=== PATIENT | female | born 1940 | race Caucasian/White ===

== ENCOUNTER 2017-02-15 01:11 | Emergency (ER) | payer OTHER ==
[~2017-02-15] VITALS: Ht 149.9 cm; Wt 57.6 kg
[2017-02-15] MEDS ORDERED: HYDROXYCHLOROQ200 M1 PO (01:34)
[2017-02-15] MEDS ORDERED: CARDURA1 MG PO (01:38)
[2017-02-15] MEDS ORDERED: GLUCOTROL5 MG PO (01:39)
[2017-02-15] MEDS ORDERED: CALCITRIOL0.25 MCG PO (01:42)
[2017-02-15] MEDS ORDERED: ZOCOR20 MG PO (01:43)
[2017-02-15] MEDS ORDERED: COREG25 MG PO (01:44)
[2017-02-15] MEDS ORDERED: OMEPRAZOLE40 MG PO (01:46)
[2017-02-15 01:48] LABS: HEMATOCRIT 25.7 % (37.0-47.0); HEMOGLOBIN 8.5 gm/dL (12.0-15.0); MCH 29.4 pg (26.0-34.0); MCHC 32.9 g/dL (28.0-37.0); MCV 89.2 fL (80.0-100.0); PLATELET COUNT 227 thou/uL (150-400); RBC 2.88 mil/uL (4.20-5.00); RDW 12.9 % (10.5-14.5)
[2017-02-15 01:49] LABS: MANUAL DIFF YES
[2017-02-15 01:55] LABS: CALCIUM 9.6 mg/dL (8.5-10.1); CREATININE 4.9 mg/dL (0.6-1.0); POTASSIUM 3.7 mmol/L (3.5-5.1)
[2017-02-15 02:07] LABS: ABSOLUTE NEUTROPHILS 9.7 thou/uL (1.4-8.2); MYELOCYTES 1 %; TOTAL CELL COUNT 100
[2017-02-15 03:27] VITALS: BP 159/58
== END 2017-02-15 03:28 | disposition home or self-care (01) ==
LOC: ER 01:11
PROVIDERS: Emergency Medicine
DX: E11.649 Type 2 diabetes mellitus with hypoglycemia without coma (principal); Z86.39 Personal history of other endocrine, nutritional and metabolic disease

== ENCOUNTER 2017-02-21 07:48 | Inpatient (IN) | payer OTHER ==
[~2017-02-21] VITALS: Ht 149.9 cm; Wt 58.1 kg
[2017-02-21] VITALS (15 sets, daily range): BP systolic 98–170; BP diastolic 35–129
--- NOTE | ~2017-02-21 | HC ---
[facility] [address] [place] [address] CONSULTATION Name: NIKOLE BANKS Room #: 454-P [facility] IN M.R.#: [id number] Admission: 02/21/17 Attend Phys: Kostas Kim MD Discharge: 03/01/17 Date of : 42 Report #: [id number] THIS REPORT FOR: //name// CC: JOB FRANKLIN Physician staff Kostas Kim DATE OF SERVICE: 02/24/2017 HISTORY OF PRESENT ILLNESS: The patient is a 76-year-old female admitted with acute blood loss anemia. She was noted to have a hemoglobin of 6.6. She underwent an EGD, which revealed gastritis along with an esophageal stricture, which was dilated. The anemia was felt to be multifactorial. She does have premorbid end-stage renal disease. She had not been on dialysis, but the plan now is to have her go on dialysis. She had a dialysis catheter placed. She has generalized weakness and debilitation and we are seeing her in rehabilitation medicine consultation. PAST MEDICAL HISTORY: Includes hypertension, high cholesterol, cataracts, hysterectomy, rheumatoid arthritis, GERD, diabetes mellitus, chronic kidney disease. MEDICATIONS: Please see the full medication listing. ALLERGIES: Amoxicillin. HABITS: No history of tobacco or alcohol abuse. SOCIAL HISTORY: Lives in an apartment alone, utilizes a walker, was able to dress herself, bath herself, cook, did not drive. She does have two involved daughters and the plan is likely to initially stay with one of the daughters. Both of them do have some steps into their respective homes. REVIEW OF SYSTEMS: She did not offer any current complaints of chest pain, shortness of breath or abdominal discomfort. She does have numbness of both lower extremities, although she does not know specific diagnosis in the past of a peripheral neuropathy. No focal extremity pain complaints. She does have some chronic rheumatoid changes with RA. PHYSICAL EXAMINATION: GENERAL: A 76-year-old overweight, pleasant female in no obvious distress. VITAL SIGNS: Last recorded temperature is 98.3, pulse 76, respirations 16, blood pressure 160/72. The patient is alert, oriented. HEENT: Appeared to be benign. NEUROLOGIC: Cranial nerves are grossly intact. Facies are symmetric. She does have the port in place. Left supraclavicular area. No obvious focal weakness [address] [address] CONSULTATION Name: NIKOLE BANKS Room #: 454-P [facility] IN ..#: [id number] Admission: 02/21/17 Attend Phys: Kostas Kim MD Discharge: 03/01/17 Date of : 42 Report #: [id number] with gentle testing of that left upper extremity. No obvious focal weakness of the right upper extremity. She does have some chronic rheumatoid changes of her hands. Lower extremities, no focal calf swelling. Range of motion appears reasonably intact. Her strength is grade 3+ to 4-/5. DTRs are trace. She does have distal decreased sensation in a stocking distribution. She has been min assist with sit to stand and ambulated 3 feet min assist with a front-wheeled walker. ASSESSMENT: A 76-year-old female with the following problem list: 1. Medical complexity with generalized debilitation. 2. Anemia, which appears multifactorial. 3. Dysphagia secondary to esophageal stricture, status post dilatation 02/22. End-stage renal disease, now to start hemodialysis. 4. Protein-calorie malnutrition. 5. Diabetes mellitus with evidence of premorbid peripheral neuropathy. 6. History of rheumatoid arthritis. PLAN: The patient appears motivated to improve her strength and endurance with the goal of initially going to live with one of the daughters. She does have multiple comorbidities with multiple physicians that are following. She certainly could be a candidate for a short acute in-hospital inpatient rehabilitation stay where the multiple foreign law consultant physicians can continue to follow along with her to try to expedite getting her back home into the home setting. Insurance will be checked regarding acute inpatient rehabilitation options for her to go to the rehab alatorre for a short stay to get back to the home setting. We will be glad to follow along with you. <ELECTRONICALLY SIGNED> By: Stanley Iverson MD 03/02/17 1006 [id number] [id number] Stanley Iverson MD /[facility]
--- NOTE | ~2017-02-21 | EKG ---
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
--- NOTE | ~2017-02-21 | S ---
[facility] [place] [address] SURGICAL PATH RPT PROCEDURE Name: NIKOLE BANKS Room #: 454-P ADM IN M.R.#: [id number] Admission: 02/21/17 Date of : 42 Discharge: Report #: [id number] Path Case #: [id number] PATHOLOGY REPORT COLLECTION DATE: 02/22/2017 RECEIVED DATE: 02/22/2017 SUBMITTING PHYS: Dr. Jung Carbajal OTHER PHYS: Dr. Kostas Carreon SPECIMEN(S) RECEIVED: A.Small bowel bx B.Antral bx * * * * * * * * * * * * FINAL DIAGNOSIS: A. Small bowel biopsy, "small bowel biopsy": - No obvious diagnostic changes. - There is no evidence of acute cryptitis, granulomas, adenomatous change, sprue-like changes or malignancy. B. Gastric biopsy, antrum: - Mild chronic reactive gastropathy. - The immunoperoxidase stains for Helicobacter pylori is negative. (SHA:mgr; 02/24/2017) PATHOLOGIST: Rony Tony M.D. REPORT ELECTRONICALLY SIGNED BY: Rony Tony M.D. DATE/TIME: 02/24/2017 12:48 * * * * * * * * * * * * GROSS PATHOLOGY: A. Received in formalin labeled "Nikole Banks, small bowel BX r/o Celiac," is a segment of lowry soft tissue measuring 0.4 cm in maximum dimension. The specimen is submitted entirely in cassette A1. B. Received in formalin labeled "Nikole Banks, antral BX r/o H. pylori," are 3 segments of lowry soft tissue measuring 0.8 x 0.5 x 0.3 cm in aggregate dimensions and ranging from 0.2 to 0.7 cm in maximum dimension. The specimen is submitted entirely in cassette B1. (TSD; 02/23/2017) CLINICAL HISTORY: Pre-OP DX: Anemia Post-OP DX: Esophageal stricture, dysphagia INITIAL CPT CODE(S): [address] [address] SURGICAL PATH RPT PROCEDURE Name: NIKOLE BANKS Room #: 454-P ADM IN M.R.#: [id number] Admission: 02/21/17 Date of : 42 Discharge: Report #: [id number] Path Case #: [id number]; [id number] B; [id number], [id number] Professional services performed by [facility] at [address] , [place] [address] Technical services performed by [facility] at [address] [place] [address], [address], [place] [address]. [facility] [address] [address] PHONE: [phone] DIRECTOR: Andrey Carreon M.D. * * * END OF REPORT * * *
--- NOTE | ~2017-02-21 | HC ---
[facility] [place] [address] CONSULTATION Name: NIKOLE BANKS Room #: 454-P [facility] IN M.R.#: [id number] Admission: 02/21/17 Attend Phys: Kostas Kim MD Discharge: Date of : 41 Report #: [id number] THIS REPORT FOR: //name// CC: JOB Kim DATE OF SERVICE: 02/21/2017 REASON FOR CONSULTATION: I was asked to evaluate concerning sepsis. HISTORY OF PRESENT ILLNESS: The patient is a 76-year-old end-stage renal disease, who had a previous AV fistula and 10 days ago, had placement of a right upper extremity AV graft. Presents now with fatigue, generalized weakness, epigastric pain associated with nausea and vomiting. She denied any melena or hematemesis. Due to her progressive weakness, she is brought into the Emergency Room. She had recently finished her course of Keflex following her right AV graft placement. Denies any fever, although she has had chills. No travel. No other issues identified. Denies any diarrhea. ALLERGIES: SHE IS ALLERGIC TO AMOXICILLIN. MEDICATIONS: As noted on her medication list including Plaquenil, was given Merrem in the Emergency Room. PAST MEDICAL HISTORY: Hypertension; hyperlipidemia; cataract surgery; hysterectomy; rheumatoid arthritis, on Plaquenil; gastroesophageal reflux; previous GI bleed; diabetes; chronic kidney disease. FAMILY HISTORY: Noncontributory. SOCIAL HISTORY: Nonsmoker, no significant alcohol intake. REVIEW OF SYSTEMS: As noted above with no cough, sputum or chest pain. No reported dysuria. Does have an indwelling Cazares catheter in. No rashes or decubiti. PHYSICAL EXAMINATION: VITAL SIGNS: She was afebrile, temperature is 97.6, pulse 66, blood pressure 105/35. GENERAL: She did receive some mannitol during dialysis. She has a left temporary dialysis catheter in place. She was pale. HEENT: Unremarkable. NECK: Supple. LUNGS: Clear. HEART: Regular without murmur. [facility] [address] [place] [address] CONSULTATION Name: NIKOLE BANKS Room #: [facility] IN ..#: [id number] Admission: 02/21/17 Attend Phys: Kostas Kim MD Discharge: Date of : 42 Report #: [id number] ABDOMEN: Mild tenderness in the epigastric region. No masses or hepatosplenomegaly. No rebound or guarding. GENITOURINARY: External genitalia unremarkable with indwelling Cazares catheter. EXTREMITIES: Unremarkable other than changes of rheumatoid arthritis. LABORATORY STUDIES: Sodium 114, potassium 6.4, bicarb of 12, creatinine 5.8, lipase 77. Liver function tests normal. Lactate 1.7. Hemoglobin 6.8, white count 26.5, platelet count 278,000, 88% segs, 10% bands. Urinalysis unremarkable. ABG on room air showed a pO2 of 107, pCO2 20, pH 7.3, lactate 1.6. Blood cultures pending. Urine culture pending. Chest x-ray negative. Ultrasound of the right upper extremity, AV graft site unremarkable. There was some associated edema. CT abdomen and pelvis, fatty liver. IMPRESSION AND PLAN: A 76-year-old with rheumatoid arthritis, presents with gastroenteritis symptoms associated with anemia, marked leukocytosis, metabolic acidosis, hyponatremia, hyperkalemia, inflammatory reaction to her right upper extremity AV fistula with no definite abscess. Recommend broad antibiotic coverage pending culture results. We will need to monitor her right upper extremity closely. We will see how she responds to correcting of her acidosis and her hyponatremia. I am suspecting this will improve for GI complaints. The profound anemia is still being worked up. It is normocytic making anemia of chronic disease with possible superimposed acute GI bleed more likely. She will be treated with broad antibiotic coverage and I have discussed the case with nursing staff at the bedside as well as the dialysis nurse. We will give medications adjusted for her renal failure. We will follow white count closely. Await repeat laboratory studies post dialysis. <ELECTRONICALLY SIGNED> By: Junior Raines MD 02/23/17 1330 1659 0509 Junior Raines MD /nt
--- NOTE | ~2017-02-21 | HC ---
[facility] [place] [address] CONSULTATION Name: NIKOLE BANKS Room #: 241-P ADM IN M.R.#: [id number] Admission: 02/21/17 Attend Phys: Kostas Kim MD Discharge: Date of : 42 Report #: [id number] THIS REPORT FOR: //name// CC: JOB Kim REASON FOR PRESENTATION: Nausea and vomiting. REASON FOR CONSULTATION: End-stage renal disease. HISTORY OF PRESENT ILLNESS: This 76-year-old with end-stage renal disease due to diabetes mellitus and hypertension. She is followed by another unix engineer in another group. She is in the process of being prepared for dialysis. She had a failed left AV fistula placement. She recently couple of weeks ago had right AV graft placed. The patient started to get ill and sick in the last couple of days. Family has tried to manage her with excessive fluid intake. She had some hiccups. She also had some fever and chills. Family noticed that there is a swelling around the new AV grafts. She was prescribed Keflex and ciprofloxacin after her graft surgery. She denies any cough. No chest pain. No urinary symptoms, but she makes little urine. On presentation to the emergency room, she was found to have hyponatremia, hypokalemia and all stigmata of end-stage renal disease. I was asked to manage her end-stage renal disease. PAST MEDICAL HISTORY: 1. Rheumatoid arthritis. 2. Hypertension. 3. Diabetes mellitus. 4. Hyperparathyroidism. PAST SURGICAL HISTORY: 1. Appendectomy. 2. Left failed AV fistula. 3. New right AV graft. ALLERGIES: AMOXICILLIN. SOCIAL HISTORY: No drug or alcohol abuse. 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 FAMILY HISTORY: Significant for diabetes mellitus and hypertension. REVIEW OF SYSTEMS: GENERAL: No significant for weakness, fever and chills. PULMONARY: Significant for no cough or hemoptysis. CARDIOVASCULAR: No chest pain. GASTROINTESTINAL: As per the history of present illness. GENITOURINARY: No frequency, no urgency. SKIN: No rash or ulcerations; however, there is some redness around her right [facility] [address] [place] [address] CONSULTATION Name: BANKSNIKOLE Room #: 241-P [facility] IN [facility].#: [id number] Admission: 02/21/17 Attend Phys: Kostas Kim MD Discharge: Date of : 42 Report #: [id number] new AV graft. PHYSICAL EXAMINATION: GENERAL: She is alert, in mild distress. Pulse ox is 100, blood pressure is 130/48, temperature was 36.4. HEAD AND NECK: No jugular venous distention. CHEST: Decreased air entry bilaterally. CARDIOVASCULAR: No rub detected. ABDOMEN: Soft, distended. LOWER EXTREMITIES: +3 edema. UPPER EXTREMITIES: Right upper extremity swelling with new AV fistula and with new AV graft with some redness around the graft. LABORATORY VALUES: Reviewed. White blood cell count is elevated at 26,000; hemoglobin 6.6. Blood gas revealed a pH of 7.3. Chemistry showed sodium of 114, potassium of 6.4, carbon dioxide of 12, anion gap of 18, BUN of 121 and creatinine of 5.8. Imaging including chest x-ray reviewed. ASSESSMENT, IMPRESSION, PLAN: 1. End-stage renal disease. 2. Hyponatremia. 3. Hyperkalemia. 4. Uremia. 5. Fluid overload. 6. Anemia. 7. Admission to the Intensive Care Unit type and cross. 8. Septic workup with olson cultures. 9. To place a temporary dialysis catheter. 10. Initiate hemodialysis with a gentle protocol. 11. We will continue to follow along. By: [id number] [id number] Cecily Ledesma MD /nt
[~2017-02-21 07:48] MED LIST: CALCITRIOL0.25 MCG PO; CARDURA1 MG PO; COREG25 MG PO; GLUCOTROL5 MG PO; HYDROXYCHLOROQ200 M1 PO; OMEPRAZOLE40 MG PO; ZOCOR20 MG PO
[2017-02-21 08:17] LABS: MCH 29.5 pg (26.0-34.0); MCHC 33.2 g/dL (28.0-37.0); MCV 88.9 fL (80.0-100.0); PLATELET COUNT 278 thou/uL (150-400); RBC 2.23 mil/uL (4.20-5.00); RDW 13.5 % (10.5-14.5); WBC 26.5 thou/uL (4.0-11.0)
[2017-02-21 08:19] LABS: MANUAL DIFF YES
[2017-02-21 08:21] LABS: HEMATOCRIT 19.8 % (37.0-47.0); HEMOGLOBIN 6.6 gm/dL (12.0-15.0)
[2017-02-21 08:22] LABS: BUN 121 mg/dL (7-18); CALCIUM 8.5 mg/dL (8.5-10.1); CHLORIDE 84 mmol/L (98-107); CO2 12 mmol/L (21-32); CREATININE 5.8 mg/dL (0.6-1.0); GLUCOSE 100 mg/dL (74-106)
[2017-02-21 08:24] LABS: ANION GAP 18 mmol/L (7-16)
[2017-02-21 08:25] LABS: POTASSIUM 6.4 mmol/L (3.5-5.1)
[2017-02-21 08:26] LABS: SODIUM 114 mmol/L (136-145)
[2017-02-21 08:30] LABS: ALBUMIN 2.5 g/dL (3.4-5.0); ALKALINE PHOSPHATASE 102 U/L (46-116); DIRECT BILIRUBIN 0.2 mg/dL (<0.1-0.3); SGOT 28 U/L (15-37); SGPT 16 U/L (30-65); TOTAL BILIRUBIN 0.3 mg/dL (<0.1-1.0); TOTAL PROTEIN 6.9 g/dL (6.4-8.2); TROPONIN-I < 0.04 ng/mL (<0.04-0.07)
[2017-02-21] MEDS ORDERED: HYDROCODONE-AP1 EAC6 PO (08:43)
[2017-02-21] MEDS ORDERED: KEFLEX500 MG PO (08:43)
[2017-02-21 08:58] LABS: TOTAL CELL COUNT 100
[2017-02-21 08:59] LABS: ANISOCYTOSIS 1+; HYPOCHROMASIA 1+; PLATELET ESTIMATE NORMAL; POLYCHROMASIA 1+
[2017-02-21 09:29] LABS: URINE BILIRUBIN NEGATIVE (Negative); URINE BLOOD NEGATIVE (Negative); URINE COLOR YELLOW; URINE GLUCOSE-RANDOM* NEGATIVE (Negative); URINE KETONES NEGATIVE (Negative); URINE NITRITE NEGATIVE (Negative); URINE PROTEIN (DIPSTICK) NEGATIVE (Negative); URINE SPECIFIC GRAVITY 1.025 (1.003-1.035); URINE UROBILINOGEN 0.2 E.U./dl (0.2-1.0)
[2017-02-21 09:50] LABS: APTT 34.3 Seconds (24.5-32.8); PROTIME 10.6 Seconds (9.3-11.4)
[2017-02-21 13:45] LABS: ABG SAMPLE TYPE ARTERIAL; BE(vivo) -14.5 mmol/L (-2 to +3); HCO3 10.2 mmol/L (22.0-26.0); LACTATE 1.64 mmol/L (0.5-2.0); O2(CT) 11.5 mL/dL (15.0-23.0); O2Hb 96.7 % (92.0-98.0); PCO2 20.9 mmHg (35.0-45.0); PO2 107.5 mmHg (80.0-100.0); STICK SITE L.RADIAL; pH 7.308 (7.360-7.450); sO2 97.6 % (92.0-98.0); tCO2 10.9 mmol/L (24.0-30.0)
[2017-02-21 14:08] LABS: HEMATOCRIT 20.3 % (37.0-47.0); HEMOGLOBIN 6.8 gm/dL (12.0-15.0)
[2017-02-21 19:47] LABS: HEMATOCRIT 25.1 % (37.0-47.0); HEMOGLOBIN 8.7 gm/dL (12.0-15.0)
[2017-02-22] VITALS (34 sets, daily range): BP systolic 97–156; BP diastolic 45–122
[2017-02-22 01:06] LABS: HEP B SURFACE Ab(ANTI-HBS Non Reactive (())
[2017-02-22 05:11] LABS: GLYCOHEMOGLOBIN (HGB A1C) 6.1 % (4.8-5.6)
[2017-02-22 06:03] LABS: HEMOGLOBIN 8.3 gm/dL (12.0-15.0); MCH 28.4 pg (26.0-34.0); MCHC 33.4 g/dL (28.0-37.0); PLATELET COUNT 251 thou/uL (150-400); RBC 2.94 mil/uL (4.20-5.00); WBC 19.9 thou/uL (4.0-11.0)
[2017-02-22 06:08] LABS: MANUAL DIFF YES
[2017-02-22 06:12] LABS: ALBUMIN 1.9 g/dL (3.4-5.0); CALCIUM 7.5 mg/dL (8.5-10.1); MAGNESIUM 1.8 mg/dL (1.8-2.4); TOTAL BILIRUBIN 0.8 mg/dL (<0.1-1.0); TOTAL PROTEIN 5.6 g/dL (6.4-8.2)
[2017-02-22 06:13] LABS: CREATININE 3.2 mg/dL (0.6-1.0)
[2017-02-22 09:35] LABS: ABSOLUTE NEUTROPHILS 18.5 thou/uL (1.4-8.2); PLATELET ESTIMATE NORMAL; TOTAL CELL COUNT 100
[2017-02-22 11:26] LABS: HEMATOCRIT 27.4 % (37.0-47.0); HEMOGLOBIN 9.1 gm/dL (12.0-15.0); MCH 28.5 pg (26.0-34.0); MCHC 33.4 g/dL (28.0-37.0); MCV 85.2 fL (80.0-100.0); RBC 3.21 mil/uL (4.20-5.00); RDW 14.4 % (10.5-14.5); WBC 25.5 thou/uL (4.0-11.0)
[2017-02-22 11:35] LABS: CALCIUM 7.3 mg/dL (8.5-10.1); POTASSIUM 3.8 mmol/L (3.5-5.1)
[2017-02-22 11:36] LABS: CREATININE 2.1 mg/dL (0.6-1.0)
[2017-02-22 11:40] LABS: ALBUMIN 1.9 g/dL (3.4-5.0); TOTAL BILIRUBIN 0.7 mg/dL (<0.1-1.0); TOTAL PROTEIN 5.5 g/dL (6.4-8.2)
[2017-02-23 05:43] LABS: HEMATOCRIT 23.4 % (37.0-47.0); HEMOGLOBIN 7.8 gm/dL (12.0-15.0); MCH 28.5 pg (26.0-34.0); MCHC 33.5 g/dL (28.0-37.0); MCV 85.1 fL (80.0-100.0); PLATELET COUNT 249 thou/uL (150-400); RBC 2.75 mil/uL (4.20-5.00); RDW 14.4 % (10.5-14.5); WBC 16.2 thou/uL (4.0-11.0)
[2017-02-23 05:44] LABS: MANUAL DIFF YES
[2017-02-23 05:57] VITALS: BP 147/60
[2017-02-23 05:57] LABS: ALBUMIN 1.7 g/dL (3.4-5.0); CALCIUM 7.1 mg/dL (8.5-10.1); CREATININE 2.8 mg/dL (0.6-1.0); MAGNESIUM 1.8 mg/dL (1.8-2.4); PHOSPHORUS 4.4 mg/dL (2.5-4.9); POTASSIUM 3.9 mmol/L (3.5-5.1)
[2017-02-23 08:57] LABS: ABSOLUTE NEUTROPHILS 14.3 thou/uL (1.4-8.2); PLATELET ESTIMATE NORMAL; TOTAL CELL COUNT 100
[2017-02-23 16:15] VITALS: BP 162/83
[2017-02-23 19:32] VITALS: BP 149/56
[2017-02-24 04:49] LABS: HEMATOCRIT 23.1 % (37.0-47.0); HEMOGLOBIN 7.7 gm/dL (12.0-15.0); MCH 28.5 pg (26.0-34.0); MCHC 33.3 g/dL (28.0-37.0); MCV 85.6 fL (80.0-100.0); PLATELET COUNT 227 thou/uL (150-400); RDW 14.6 % (10.5-14.5)
[2017-02-24 04:50] LABS: MANUAL DIFF YES
[2017-02-24 05:02] LABS: CREATININE 3.1 mg/dL (0.6-1.0); MAGNESIUM 1.8 mg/dL (1.8-2.4); POTASSIUM 3.7 mmol/L (3.5-5.1)
[2017-02-24 05:04] LABS: INR 1.1; PROTIME 11.1 Seconds (9.3-11.4)
[2017-02-24 06:05] LABS: ABSOLUTE NEUTROPHILS 10.8 thou/uL (1.4-8.2); ANISOCYTOSIS SLIGHT; TOTAL CELL COUNT 100
[2017-02-24 07:59] VITALS: BP 149/56
[2017-02-24 08:48] VITALS: BP 153/72
[2017-02-24 12:12] VITALS: BP 160/72
[2017-02-24 15:30] VITALS: BP 143/67
[2017-02-24 19:55] VITALS: BP 158/69
[2017-02-25 05:59] VITALS: BP 145/59
[2017-02-25 06:24] LABS: HEMATOCRIT 23.7 % (37.0-47.0); HEMOGLOBIN 7.9 gm/dL (12.0-15.0); MCH 28.6 pg (26.0-34.0); MCHC 33.3 g/dL (28.0-37.0); PLATELET COUNT 253 thou/uL (150-400); RBC 2.76 mil/uL (4.20-5.00); RDW 14.1 % (10.5-14.5); WBC 11.7 thou/uL (4.0-11.0)
[2017-02-25 06:25] LABS: MANUAL DIFF YES
[2017-02-25 06:39] LABS: CALCIUM 6.9 mg/dL (8.5-10.1); POTASSIUM 4.2 mmol/L (3.5-5.1)
[2017-02-25 07:34] VITALS: BP 149/51
[2017-02-25 08:36] LABS: ABSOLUTE NEUTROPHILS 9.6 thou/uL (1.4-8.2); PLATELET ESTIMATE NORMAL; TOTAL CELL COUNT 100
[2017-02-25 11:06] VITALS: BP 166/78
[2017-02-25 19:12] VITALS: BP 146/55
[2017-02-26 04:05] VITALS: BP 138/53
[2017-02-26 06:21] LABS: HEMATOCRIT 22.9 % (37.0-47.0); HEMOGLOBIN 7.7 gm/dL (12.0-15.0); MCH 29.1 pg (26.0-34.0); MCHC 33.7 g/dL (28.0-37.0); MCV 86.5 fL (80.0-100.0); PLATELET COUNT 273 thou/uL (150-400); RBC 2.65 mil/uL (4.20-5.00); RDW 14.5 % (10.5-14.5); WBC 7.8 thou/uL (4.0-11.0)
[2017-02-26 06:27] LABS: MANUAL DIFF YES
[2017-02-26 06:32] LABS: ALBUMIN 1.7 g/dL (3.4-5.0); CALCIUM 7.3 mg/dL (8.5-10.1); PHOSPHORUS 2.7 mg/dL (2.5-4.9); POTASSIUM 3.5 mmol/L (3.5-5.1)
[2017-02-26 06:34] LABS: CREATININE 1.9 mg/dL (0.6-1.0)
[2017-02-26 07:10] LABS: ABSOLUTE NEUTROPHILS 5.5 thou/uL (1.4-8.2); METAMYELOCYTES 5 %; MYELOCYTES 1 %; TOTAL CELL COUNT 100
[2017-02-26 07:31] VITALS: BP 141/49
[2017-02-26 11:09] VITALS: BP 141/49
[2017-02-26 16:10] VITALS: BP 124/49
[2017-02-26 19:18] VITALS: BP 131/41
[2017-02-27 03:52] VITALS: BP 137/38
[2017-02-27 04:59] LABS: HEMATOCRIT 23.7 % (37.0-47.0); HEMOGLOBIN 7.8 gm/dL (12.0-15.0); MCH 28.8 pg (26.0-34.0); MCHC 32.9 g/dL (28.0-37.0); MCV 87.5 fL (80.0-100.0); PLATELET COUNT 284 thou/uL (150-400); RBC 2.71 mil/uL (4.20-5.00); RDW 14.5 % (10.5-14.5); WBC 9.6 thou/uL (4.0-11.0)
[2017-02-27 05:01] LABS: MANUAL DIFF YES
[2017-02-27 05:07] LABS: CALCIUM 7.3 mg/dL (8.5-10.1); CREATININE 2.3 mg/dL (0.6-1.0); POTASSIUM 3.7 mmol/L (3.5-5.1)
[2017-02-27 06:37] LABS: ABSOLUTE NEUTROPHILS 6.8 thou/uL (1.4-8.2); ANISOCYTOSIS 2+; METAMYELOCYTES 3 %; TOTAL CELL COUNT 100
[2017-02-27 06:38] LABS: POLYCHROMASIA OCCASIONAL
[2017-02-27 07:05] VITALS: BP 137/53
[2017-02-27 16:20] VITALS: BP 153/62
[2017-02-27 21:12] VITALS: BP 181/91
[2017-02-28 04:52] VITALS: BP 152/59
[2017-02-28 05:04] LABS: HEMATOCRIT 23.3 % (37.0-47.0); HEMOGLOBIN 7.7 gm/dL (12.0-15.0); MCHC 33.1 g/dL (28.0-37.0); MCV 87.6 fL (80.0-100.0); PLATELET COUNT 300 thou/uL (150-400); RBC 2.66 mil/uL (4.20-5.00); RDW 14.4 % (10.5-14.5); WBC 8.5 thou/uL (4.0-11.0)
[2017-02-28 05:05] LABS: MANUAL DIFF YES
[2017-02-28 05:15] LABS: INR 1.1; PROTIME 11.5 Seconds (9.3-11.4)
[2017-02-28 05:18] LABS: ALBUMIN 1.9 g/dL (3.4-5.0); CALCIUM 6.9 mg/dL (8.5-10.1); CREATININE 2.7 mg/dL (0.6-1.0); PHOSPHORUS 3.4 mg/dL (2.5-4.9); POTASSIUM 3.7 mmol/L (3.5-5.1); TOTAL BILIRUBIN 0.4 mg/dL (<0.1-1.0)
[2017-02-28 05:50] LABS: ABSOLUTE NEUTROPHILS 6.5 thou/uL (1.4-8.2); ANISOCYTOSIS SLIGHT; ATYPICAL LYMPHS 1 %; METAMYELOCYTES 1 %; MICROCYTES SLIGHT; TOTAL CELL COUNT 100
[2017-02-28 08:08] VITALS: BP 152/59
[2017-02-28 08:30] VITALS: BP 170/68
[2017-02-28 15:40] VITALS: BP 171/71
[2017-02-28 19:09] VITALS: BP 137/50
[2017-02-28 19:21] VITALS: BP 137/50
[2017-03-01 03:34] VITALS: BP 150/63
[2017-03-01 05:15] LABS: HEMATOCRIT 23.5 % (37.0-47.0); HEMOGLOBIN 7.8 gm/dL (12.0-15.0); MCH 28.9 pg (26.0-34.0); MCHC 33.1 g/dL (28.0-37.0); MCV 87.4 fL (80.0-100.0); PLATELET COUNT 308 thou/uL (150-400); RBC 2.69 mil/uL (4.20-5.00); RDW 14.4 % (10.5-14.5); WBC 7.4 thou/uL (4.0-11.0)
[2017-03-01 05:19] LABS: MANUAL DIFF YES
[2017-03-01 07:07] LABS: CALCIUM 7.4 mg/dL (8.5-10.1); CREATININE 1.9 mg/dL (0.6-1.0); POTASSIUM 3.7 mmol/L (3.5-5.1)
[2017-03-01 07:40] VITALS: BP 163/56
[2017-03-01 08:48] LABS: ABSOLUTE NEUTROPHILS 4.7 thou/uL (1.4-8.2); ANISOCYTOSIS 1+; HYPOCHROMASIA 2+; METAMYELOCYTES 2 %; POLYCHROMASIA OCCASIONAL; TOTAL CELL COUNT 100
[2017-03-01 12:15] VITALS: BP 168/81
== END 2017-03-01 17:33 | DRG 871 ==
LOC: ER 07:48 → ICU 09:30 → EROBS 09:30 → 4W 09:30 → ICU 12:46 → 4W 02-22 13:37
PROVIDERS: Emergency Medicine; Family Medicine; Hospitalist; Internal Medicine; Internal Medicine Gastroenterology; Nurse Practitioner
PROC: 02HV33Z Insertion of Infusion Device into Superior Vena Cava, Percutaneous Approach (ICD-10-PCS; principal; 2017-02-21)
PROC: B548ZZA Ultrasonography of Superior Vena Cava, Guidance (ICD-10-PCS; principal; 2017-02-21)
PROC: 30243N1 Transfusion of Nonautologous Red Blood Cells into Central Vein, Percutaneous Approach (ICD-10-PCS; 2017-02-21)
PROC: 0DB68ZX Excision of Stomach, Via Natural or Artificial Opening Endoscopic, Diagnostic (ICD-10-PCS; 2017-02-22)
PROC: 0DB88ZX Excision of Small Intestine, Via Natural or Artificial Opening Endoscopic, Diagnostic (ICD-10-PCS; 2017-02-22)
PROC: 0DB98ZX Excision of Duodenum, Via Natural or Artificial Opening Endoscopic, Diagnostic (ICD-10-PCS; 2017-02-22)
PROC: B5181ZA Fluoroscopy of Superior Vena Cava using Low Osmolar Contrast, Guidance (ICD-10-PCS; 2017-02-24)
PROC: B548ZZA Ultrasonography of Superior Vena Cava, Guidance (ICD-10-PCS; 2017-02-24)
PROC: 02HV33Z Insertion of Infusion Device into Superior Vena Cava, Percutaneous Approach (ICD-10-PCS; 2017-02-24)
PROC: 02PYX3Z Removal of Infusion Device from Great Vessel, External Approach (ICD-10-PCS; 2017-02-24)
PROC: B5181ZA Fluoroscopy of Superior Vena Cava using Low Osmolar Contrast, Guidance (ICD-10-PCS; 2017-02-28)
PROC: 5A1D60Z (ICD-10-PCS; 2017-02-28)
PROC: 02HV33Z Insertion of Infusion Device into Superior Vena Cava, Percutaneous Approach (ICD-10-PCS; 2017-02-28)
PROC: 02PYX3Z Removal of Infusion Device from Great Vessel, External Approach (ICD-10-PCS; 2017-02-28)
PROC: B5181ZA Fluoroscopy of Superior Vena Cava using Low Osmolar Contrast, Guidance (ICD-10-PCS; 2017-02-28)
DX: A41.9 Sepsis, unspecified organism (principal); N18.6 End stage renal disease; D62 Acute posthemorrhagic anemia; E87.1 Hypo-osmolality and hyponatremia; K92.2 Gastrointestinal hemorrhage, unspecified; N17.9 Acute kidney failure, unspecified; I12.0 Hypertensive chronic kidney disease with stage 5 chronic kidney disease or end stage renal disease; E44.0 Moderate protein-calorie malnutrition; E87.5 Hyperkalemia; M06.9 Rheumatoid arthritis, unspecified; E11.22 Type 2 diabetes mellitus with diabetic chronic kidney disease; E21.3 Hyperparathyroidism, unspecified; E87.70 Fluid overload, unspecified; E78.5 Hyperlipidemia, unspecified; K21.9 Gastro-esophageal reflux disease without esophagitis; I77.0 Arteriovenous fistula, acquired; E78.00 Pure hypercholesterolemia, unspecified; K22.2 Esophageal obstruction; E11.42 Type 2 diabetes mellitus with diabetic polyneuropathy; R13.10 Dysphagia, unspecified; K29.70 Gastritis, unspecified, without bleeding; Z88.1 Allergy status to other antibiotic agents; Z90.49 Acquired absence of other specified parts of digestive tract; Z83.3 Family history of diabetes mellitus; Z82.49 Family history of ischemic heart disease and other diseases of the circulatory system; Z90.710 Acquired absence of both cervix and uterus; Z98.42 Cataract extraction status, left eye; Z98.41 Cataract extraction status, right eye; Z68.25 Body mass index [BMI] 25.0-25.9, adult; Z87.11 Personal history of peptic ulcer disease
CPT/HCPCS: 10047; 10078; 32100; 62110; 62900; 70005